=== PATIENT | male | born 1985 | race African-American/Black ===

== ENCOUNTER 2018-06-07 08:20 | Emergency (ER) | payer OTHER ==
[~2018-06-07] VITALS: Ht 195.6 cm; Wt 95.3 kg
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
[2018-06-07 09:59] LABS: FECAL OB PT POSITIVE (NEG)
[2018-06-07] MEDS ORDERED: HYDR25SU18 RC (10:08)
[2018-06-07 10:39] VITALS: BP 124/73
== END 2018-06-07 10:40 | disposition home or self-care (01) ==
LOC: ER 08:20
DX: K64.4 Residual hemorrhoidal skin tags (principal); K64.8 Other hemorrhoids; F17.200 Nicotine dependence, unspecified, uncomplicated
CPT/HCPCS: 82274; 99283